=== PATIENT | female | born 1980 | race Hispanic/Latino ===

== ENCOUNTER 2022-04-19 13:55 | Emergency (ER) | payer SELFPAY ==
[~2022-04-19] VITALS: Ht 154.9 cm; Wt 72.0 kg
[2022-04-19 15:53] VITALS: BP 142/77
== END 2022-04-19 16:23 | disposition home or self-care (01) | DRG 159 ==
LOC: ED 13:55
DX: M26.601 Right temporomandibular joint disorder, unspecified (principal)

== ENCOUNTER 2023-06-25 11:07 | Emergency (ER) | payer SELFPAY ==
[~2023-06-25] VITALS: Ht 154.9 cm; Wt 74.0 kg
[2023-06-25 11:24] VITALS: BP 140/82
[2023-06-25 11:30] VITALS: BP 138/69
[2023-06-25] MEDS ORDERED: ZITHROMAX Z-PA250 MG PO (11:37)
[2023-06-25] MEDS ORDERED: PREDNISONE10 MG PO (11:38)
[2023-06-25] MEDS ORDERED: VENTOLIN HFA IN (11:38)
[2023-06-25 11:45] VITALS: BP 141/77
[2023-06-25 11:51] LABS: BASO% 0.4 % (0-3); EOS% 0.1 % (0-8); HEMATOCRIT 41.7 % (37.0-47.0); HEMOGLOBIN 14.1 g/dl (12.0-16.0); IMMATURE GRANULOCYTES 1.3 % (0.0-5.0); LYMPH% 33.8 % (15-41); MEAN CORPUSCULAR HGB 29.7 pG CALC (26.0-32.0); MEAN CORPUSCULAR HGB CONC 33.8 g/dL CAL (32.0-36.0); MONO% 6.7 % (2-13); NEUT# 4.73 thou/uL (2.00-7.15); NEUT% 57.7 % (42-76); RED BLOOD COUNT 4.74 mill/uL (4.20-5.60); RED CELL DISTRI WIDTH 13.5 % (11.5-15.5)
[2023-06-25 12:00] VITALS: BP 131/75
[2023-06-25 12:06] LABS: ALBUMIN 4.5 g/dL (3.2-5.0); ALKALINE PHOSPHATASE 71 u/l (38-126); ANION GAP 13 (6-22 (CALC)); BILIRUBIN, TOTAL 0.5 mg/dL (0.02-1.3); BUN 12 mg/dL (7-17); BUN/CREATININE RATIO 20 (12-20 (CALC)); CARBON DIOXIDE 25 mmol/l (22-30); CHLORIDE 104 mmol/l (95-108); CREATININE 0.6 mg/dL (0.5-1.0); GFR FOR AFR.AMER. > 60 ML/MIN (>=60 (CALC)); GFR OTHER RACES > 60 ML/MIN (>=60 (CALC)); POTASSIUM 3.5 mmol/l (3.5-5.1); SGOT/AST 51 u/l (14-36); SODIUM 139 mmol/l (137-146)
[2023-06-25 12:15] VITALS: BP 137/82
[2023-06-25 13:44] LABS: URINE BILIRUBIN - DIPSTICK Negative (NEGATIVE); URINE BLOOD DIPSTICK Trace-lysed (NEGATIVE); URINE GLUCOSE - DIPSTICK Negative (NEGATIVE); URINE KETONE Negative (NEGATIVE); URINE LEUK ESTERASE Negative (NEGATIVE); URINE NITRITE - DIPSTICK Negative (Negative); URINE PROTEIN - DIPSTICK Negative (NEG-TRACE); URINE SPECIFIC GRAVITY 1.015; URINE UROBILINOGEN - DIPSTICK 0.2 E.U./dL (0.2)
[2023-06-25 13:49] LABS: URINE COLOR Yellow
[2023-06-25] MEDS ORDERED: PREDNISONE20 MG PO (15:04)
[2023-06-25] MEDS ORDERED: ROBITUSSIN AC10 ML PO (15:04)
[2023-06-25] MEDS ORDERED: XYZAL ALLERGY 245 MG PO (15:04)
[2023-06-25] MEDS ORDERED: IPRATROPIU0.5 MG/3 M IN (15:14)
[2023-06-25 15:19] VITALS: BP 137/82
[2023-06-25] MEDS ORDERED: BENZONATATE200 MG PO (15:20)
== END 2023-06-25 15:31 | disposition home or self-care (01) | DRG 153 ==
LOC: ED 11:07
PROVIDERS: Nurse Practitioner
DX: J06.9 Acute upper respiratory infection, unspecified (principal); J40 Bronchitis, not specified as acute or chronic; R10.11 Right upper quadrant pain; Z20.822 Contact with and (suspected) exposure to COVID-19
CPT/HCPCS: Q9967